=== PATIENT | female | born 1975 | race African-American/Black ===

== ENCOUNTER 2019-07-18 20:38 | Inpatient (IN) | payer OTHER ==
[~2019-07-18] VITALS: Ht 175.3 cm; Wt 97.5 kg
[~2019-07-18 20:38] MED LIST: NORCO 5-325 TA1 EACH PO; ZPAK PO
[2019-07-18 20:50] VITALS: BP 170/98
[2019-07-18 21:24] LABS: HEMATOCRIT 36.7 % (37.0-47.0); HEMOGLOBIN 11.7 gm/dL (12.0-15.0); MCH 24.5 pg (26.0-34.0); MCHC 31.8 g/dL (28.0-37.0); MCV 77.2 fL (80.0-100.0); RBC 4.75 mil/uL (4.20-5.00); RDW 15.6 % (10.5-14.5)
[2019-07-18 21:26] LABS: URINE BILIRUBIN NEGATIVE (Negative); URINE BLOOD NEGATIVE (Negative); URINE CLARITY SL CLOUDY; URINE COLOR YELLOW; URINE GLUCOSE-RANDOM* NEGATIVE (Negative); URINE KETONES NEGATIVE (Negative); URINE NITRITE-REFLEX NEGATIVE (Negative); URINE PROTEIN (DIPSTICK) NEGATIVE (Negative); URINE UROBILINOGEN 0.2 E.U./dl (0.2-1.0)
[2019-07-18 21:27] LABS: URINE LEUKOCYTES-REFLEX 3+ (Negative)
[2019-07-18 21:32] LABS: CALCIUM 8.7 mg/dL (8.5-10.1); POTASSIUM 3.2 mmol/L (3.5-5.1); SQUAMOUS 0-3 Few /LPF (0-3); URINE RBC 0-2 Rare /HPF (0-2); URINE WBC-REFLEX 6-15 Few /HPF (0-5)
[2019-07-18 21:33] LABS: CASTS None Seen /LPF (None Seen); CRYSTALS None Seen /LPF (None Seen); MUCUS 0-3 Light strn/LPF (None Seen)
[2019-07-18 21:38] LABS: ALBUMIN 3.9 g/dL (3.4-5.0); TOTAL BILIRUBIN 0.3 mg/dL (0.2-1.0); TOTAL PROTEIN 8.7 g/dL (6.4-8.2)
[2019-07-19 15:52] VITALS: BP 165/93
[2019-07-19 16:00] VITALS: BP 165/93
[2019-07-19 20:09] VITALS: BP 143/86
[2019-07-19 20:32] VITALS: BP 146/93
[2019-07-19 21:37] VITALS: BP 127/82
[2019-07-20 00:30] VITALS: BP 122/78
--- NOTE | 2019-07-20 00:50 | NUR ---
PT ARRIVED ON THE UNIT @2100 FROM OR. RESTING WELL IN BED. VITAL SIGNS STABLE. IV INTACT AND FLUIDS INFUISING. 5 LAPSITES INTACT WITH DERMABOND. PO FLUIDS AND JELLO GIVEN. ZOFRAN GIVENX1 AND HYDROCODNE GIVEN FOR PAIN. CALL LIGHT IN REACH WILL CONT WITH POC TILL EOS.
[2019-07-20 04:50] VITALS: BP 155/92
[2019-07-20 07:35] VITALS: BP 131/77
[2019-07-20 13:21] VITALS: BP 131/77
--- NOTE | 2019-07-20 14:15 | NUR ---
cm spoke w pt and he has orders to d/c home. pt is alert and oriented x4. pt is s/p macey aleman. cm spoke w pt who reports she has no needs from [facility].
[2019-07-20 14:26] VITALS: BP 131/77
--- NOTE | 2019-07-20 14:31 | NUR ---
DISCHARGE PAPERS GONE OVER SIGNED AND COPY IN CHART. IV ACSESS DCD ALL BELONGINGS PACKED AND SENT WITH PATIENT. PT GIVEN PRN PAIN MED BEFORE DISCHARGE
--- NOTE | 2019-07-25 13:09 | PATH ---
[facility] [address] [place] [address] PATHOLOGY RPT PROCEDURE Name: RUBIDIANE Chato Room #: 443-P [facility] IN M.R.#: [id number] Admission: 07/18/19 Date of : 73 Discharge: 07/20/19 Report #: [id number] Path Case #: [id number] [facility] Accession Number: [id number] . 01 Material submitted: . gallbladder - GALLBLADDER . 01 Clinical history: . Acute cholecystitis . 02 Diagnosis: Gallbladder, excision: - Acute cholecystitis; negative for malignancy. - Lithiasis. (MLK:pit; 07/22/2019) [facility] 07/22/2019 1255 Local . 02 Electronically signed: . Grazyna Ramírez MD, Pathologist NPI- [id number] . 01 Gross description: . The specimen is received in formalin, labeled "Diane Stone, gallbladder". Received is a previously opened gallbladder measuring 11.0 x 4.1 x 3.2 cm in greatest dimensions displaying a pink-torres to adipose covered serosal surface. Opening the specimen reveals a velvety, light cedeño to light brown mucosa with a gallbladder wall thickness of 0.1 cm. Calculi are present displaying a bright yellow and multifaceted appearance, and no masses or lesions are noted grossly. Sql Programmer Analyst sections, to include the proximal margin, are submitted in cassette A1. (CAA; 07/21/2019) [facility] 07/22/2019 1254 Local . 02 Pathologist provided ICD-10: K80.00 . 02 CPT . 830484 Specimen Comment: A courtesy copy of this report has been sent to [phone] Specimen Comment: Report sent to Performed at: [address] [id number] MD Erlin Polo MD Phone: [phone] Performed at: [address] [id number] [address] [address] PATHOLOGY RPT PROCEDURE Name: DIANE VENEGAS Room #: 443-P [facility] IN M.R.#: [id number] Admission: 07/18/19 Date of : 73 Discharge: 07/20/19 Report #: [id number] Path Case #: [id number] MD Babita Isaac MD Phone: [phone]
--- NOTE | 2019-07-29 13:15 | O ---
[facility] [place] [address] OPERATIVE REPORT Name: SHANNAN VENEGAS Room #: 443-P [facility] IN M.R.#: [id number] Admission: 07/18/19 Attend Phys: Jorge Alonso, Discharge: 07/20/19 Date of : 73 Report #: [id number] THIS REPORT FOR: cc: B[facility]KE - Toña family physician/PCP FAM - No family physician/PCP Jorge Alonso MD ~ CC: [facility] physician/PCP Jorge Alonso DATE OF SERVICE: 07/19/2019 PREOPERATIVE DIAGNOSIS: Acute cholecystitis. POSTOPERATIVE DIAGNOSIS: Acute cholecystitis. OPERATION: Laparoscopic cholecystectomy. SURGEON: Jorge Alonso MD ANESTHESIA: General. ESTIMATED BLOOD LOSS: Minimal. SPECIMEN: Gallbladder. DESCRIPTION OF PROCEDURE: After informed consent was obtained, the patient was brought to the operating room and placed supine. SCDs were placed and working, preoperative antibiotics were administered, general anesthesia was induced. The abdomen was prepped and draped in the usual sterile fashion. A 10 mm incision was made at the umbilicus. Fascia was incised and a trocar was placed. Pneumoperitoneum was established. Three right upper quadrant 5 mm ports were placed. Gallbladder was grasped at the fundus and retracted cephalad. Infundibulum was grasped and retracted laterally. I dissected out the cystic duct and cystic artery. The cystic plate was fully identified. The cystic duct was clipped and ligated leaving 2 clips on the remaining duct as well as a PDS Endoloop. The cystic artery was clipped and ligated with a single clip. Gallbladder was then taken off the liver bed with electrocautery. It was placed into an Endopouch and removed. The fascia was then closed with a [id number] 0 Vicryl. Skin was closed with 4-0 Monocryl. Incisions were sealed with Dermabond. COMPLICATIONS: None. [facility] [address] [place] [address] OPERATIVE REPORT Name: SHANNAN VENEGAS Room #: 443-P [facility]#: [id number] Admission: 07/18/19 Attend Phys: Jorge Alonso, Discharge: 07/20/19 Date of : 73 Report #: [id number] DISPOSITION: The patient was taken to recovery in satisfactory condition. <ELECTRONICALLY SIGNED> By: Jorge Alonso MD 07/29/19 1315 1011 1024 Jorge Alonso MD /nt
== END 2019-07-20 14:27 | disposition home or self-care (01) | DRG 419 ==
LOC: ER 20:38 → 4S 22:44 → EROBS 22:44 → 4S 07-19 16:13
PROVIDERS: Student in an Organized Health Care Education/Training Program; ADMIT Surgery; ATTEND Surgery
PROC: 0FT44ZZ Resection of Gallbladder, Percutaneous Endoscopic Approach (ICD-10-PCS; principal; 2019-07-19)
DX: K80.42 Calculus of bile duct with acute cholecystitis without obstruction (principal); I10 Essential (primary) hypertension; G47.33 Obstructive sleep apnea (adult) (pediatric); Z79.899 Other long term (current) drug therapy; Z72.89 Other problems related to lifestyle; Z03.818 Encounter for observation for suspected exposure to other biological agents ruled out
CPT/HCPCS: 10195; 50010; 50101; 50249; 50411; 50555; 51297; 51489; 52265; 52266; 53307; 53312; 53314; 54118; 55245; 56462; 56525; 56526; 70005